=== PATIENT | female | born 1980 | race African-American/Black ===

== ENCOUNTER 2018-01-05 08:33 | Emergency (ER) | payer OTHER ==
[~2018-01-05] VITALS: Ht 165.1 cm; Wt 81.6 kg
--- NOTE | 2018-01-05 09:26 | ED UPPER/LOWER EXTREMITY COMPL ---
History of Present Illness General Chief Complaint: Hand or Wrist Injury Stated Complaint: HAND INJURY S/P ACCIDENT AT WORK Source: patient Exam Limitations: no limitations Vital Signs & Intake/Output Vital Signs & Intake/Output Vital Signs Date Time Temp Pulse Resp B/P B/P Pulse O2 O2 Flow FiO2 Mean Ox Delivery Rate 01/05 0838 98.6 87 16 146/89 99 Room Air Allergies Coded Allergies: No Known Allergies (01/05/18) Triage Note: PT TO ED FOR R WRIST PAIN S/P ATTEMPTING TO MOVE A PATIENT LAST NIGHT AT WORK, GOOD RELIEF WITH TYLENOL, PAIN ROM, SWELLING NOTED. Triage Nurses Notes Reviewed? 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 States that movement and palpation makes worse. Patient is right arm dominant. (Lev Sandoval) Past History Travel History Traveled to [place] past 21 day No Medical History Any Pertinent Medical History? none Neurological: NONE EENT: NONE Cardiovascular: NONE Respiratory: NONE Gastrointestinal: NONE Hepatic: NONE Renal: NONE Musculoskeletal: NONE Psychiatric: NONE Endocrine: NONE Blood Disorders: NONE Cancer(s): NONE Surgical History Surgical History: non-contributory Psychosocial History What is your primary language Welsh Tobacco Use: Never used ETOH Use: denies use Illicit Drug Use: denies illicit drug use Family History Hx Contributory? No (Lev Sandoval) Review of Systems Review of Systems Constitutional: Reports: no symptoms. EENTM: Reports: no symptoms. Respiratory: Reports: no symptoms. Cardiovascular: Reports: no symptoms. Gastrointestinal/Abdominal: Reports: no symptoms. Genitourinary: Reports: no symptoms. Musculoskeletal: Reports: see HPI, joint pain, joint swelling. Skin: Reports: no symptoms. Neurological/Psychological: Reports: no symptoms. Hematologic/Endocrine: Reports: no symptoms. Immunological: Reports: no symptoms. All Other Systems: Reviewed and Negative (Lev Sandoval) Physical Exam Physical Exam General Appearance: no apparent distress Head: atraumatic Eyes: Bilateral: normal appearance. Ears, Nose, Throat: hearing grossly normal Neck: normal inspection Cardiovascular/Respiratory: no respiratory distress Peripheral Pulses: 2+ radial (R) Shoulder Right: normal range of motion, normal inspection Elbow Right: normal range of motion, normal inspection Neurologic/Tendon: normal sensation, normal motor functions, normal tendon functions, responds to pain, no evidence tendon injury, no pulse deficit Skin: intact, normal color, warm/dry Comments: Right wrist- GENERALIZED SWELLING OF WRIST AND POINT TENDERNESS NO SCAPHOID TENDERNESS DECREASED AROM (Lev Sandoval) Progress Differential Diagnosis: arterial insufficiency, compartment syndrome, contusion, dislocation, DVT, fracture, gout, septic arthritis, sprain, tendon injury Plan of Care: Orders Procedure Date/time Status Durable Medical Equipment 01/05 1040 Active X-rays were unremarkable for osseous injury wrist splint was applied pre-and post-neurovascular was intact Diagnostic Imaging: Viewed by Me: Radiology Read. Radiology Impression: no fracture, no dislocation Comments: PATIENT: BENJAMIN ISBELL PRESENT AGE: 37 PATIENT ACCOUNT NO: [id number] : 78 LOCATION: [facility] ORDERING PHYSICIAN: Lev PECK SERVICE DATE: 01/05/18 EXAM TYPE: RAD - XRY-WRIST COMPLETE-RIGHT EXAMINATION: XR WRIST, RIGHT CLINICAL INFORMATION: Right wrist pain COMPARISON: None TECHNIQUE: PA, lateral, oblique, and scaphoid views of the right wrist. FINDINGS: The bones and soft tissues are normal. No fracture. Alignment is anatomic with normal joint spaces. No erosions or abnormal soft tissue calcifications. IMPRESSION: Normal right wrist. DICTATED BY: Jen Gomez MD DATE/TIME DICTATED:01/05/181027 MANAGER SERVICE DESK:EMILIANO (Lev Sandoval) Departure Departure Disposition: HOME OR SELF CARE Condition: Stable Clinical Impression Primary Impression: Sprain of wrist, right Referrals: Patient Has No Primary Care Dr (PCP/Family) Tavon Park MD Additional Instructions: As discussed begin icing the area directly 20 minutes every 2 hours, begin over- the-counter ibuprofen for pain and inflammation, begin using a wrist splint until YOU can move YOUR wrist without pain, if no better in 5 days follow-up with orthopedic Dr. Park if symptoms worsen return to emergency room Departure Forms: Customer Survey General Discharge Information (Lev Sandoval) PA/CHILD CENTER ASSISTANT Co-Sign Statement Statement: ED Attending supervision documentation- [] I saw and evaluated the patient. I have also reviewed all the pertinent lab results and diagnostic results. I agree with the findings and the plan of care as documented in the PA's/CHILD CENTER ASSISTANT's documentation. [x] I have reviewed the ED Record and agree with the PA's/CHILD CENTER ASSISTANT's documentation. [] Additions or exceptions (if any) to the PAs/CHILD CENTER ASSISTANT's note and plan are summarized below: [] (Dale Early DO
--- NOTE | 2018-01-05 10:36 | RADIOLOGY REPORT ---
EXAMINATION: XR WRIST, RIGHT CLINICAL INFORMATION: Right wrist pain COMPARISON: None TECHNIQUE: PA, lateral, oblique, and scaphoid views of the right wrist. FINDINGS: The bones and soft tissues are normal. No fracture. Alignment is anatomic with normal joint spaces. No erosions or abnormal soft tissue calcifications. IMPRESSION: Normal right wrist.
== END 2018-01-05 11:01 ==
LOC: ERH 08:33
DX: S63.501A Unspecified sprain of right wrist, initial encounter (principal); X58.XXXA Exposure to other specified factors, initial encounter; Y92.9 Unspecified place or not applicable; Y93.9 Activity, unspecified
CPT/HCPCS: 73110-RT

== ENCOUNTER 2018-07-29 17:53 | Emergency (ER) | payer OTHER ==
[2018-07-29 18:01] VITALS: BP 145/84
[2018-07-29] MEDS ORDERED: BUTALB-ACETAMI1 EACH PO (18:04)
--- NOTE | 2018-07-29 18:04 | ED HEAD/FACIAL INJ COMPLAINT ---
History of Present Illness General Chief Complaint: Headache Stated Complaint: FELL AT WORK x1 WEEK AGO, [place] Source: patient Exam Limitations: no limitations Vital Signs & Intake/Output Vital Signs & Intake/Output Vital Signs Date Time Temp Pulse Resp B/P B/P Pulse O2 O2 Flow FiO2 Mean Ox Delivery Rate 07/29 1801 97.0 83 22 145/84 98 Allergies Coded Allergies: No Known Allergies (01/05/18) Reconcile Medications Butalb/Acetaminophen/Caffeine ([employer]-Dydyxqcd-Iovb 50-325-40) 50 MG-325 MG-40 MG TABLET 1-2 TAB PO DAILY headache Triage Note: PER PT FELL AT WORK 1 WEEK AGO HIT HEAD NO LOC WAS NOT SEEN AT THAT TIME CO [place] NO BLURRY VISION NO NAUSEA Triage Nurses Notes Reviewed? yes Onset: Abrupt Severity: moderate, severe : No Patient currently breastfeeds: No HPI: 38-year-old female comes into the emergency room for further evaluation of headache. Patient reports that she fell one week ago at work. She went to sit in her chair and fell backwards and hit her head on the ground. No LOC. No vomiting. She reports that she's been having persistent headaches. Denies any vision loss. Denies any vomiting. She comes in to be further evaluated. Denies any neck pain. She complains of some mild right lower abdominal pain. Denies any other associated symptoms Past History Travel History Traveled to [place] past 21 day No Medical History Any Pertinent Medical History? 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 No Review of Systems Review of Systems Constitutional: Reports: no symptoms. EENTM: Reports: no symptoms. Respiratory: Reports: no symptoms. Cardiovascular: Reports: no symptoms. GI: Reports: no symptoms. Genitourinary: Reports: no symptoms. Musculoskeletal: Reports: no symptoms. Skin: Reports: no symptoms. Neurological/Psychological: Reports: see HPI. Hematologic/Endocrine: Reports: no symptoms. Immunologic/Allergic: Reports: no symptoms. All Other Systems: Reviewed and Negative Physical Exam Physical Exam General Appearance: well developed/nourished, mild distress Head: atraumatic, normal appearance Eyes: Bilateral: normal appearance, EOMI. Ears, Nose, Throat: normal ENT inspection, hearing grossly normal Neck: normal inspection Respiratory: no respiratory distress Cardiovascular: regular rate/rhythm Back: normal inspection, no vertebral tenderness, RIGHT LOWER BACK TENDERNESS Extremities: normal inspection, normal range of motion, no edema Psychiatric: awake, alert, oriented x 3 Cranial Nerves: normal hearing, normal speech, PERRL Coordination/Gait: normal finger to nose Motor/Sensory: no motor/sensory deficits Skin: intact, normal color, warm/dry Progress Differential Diagnosis: corneal abrasion, c-spine injury, facial fracture, globe injury, ICH, CONCUSSION Plan of Care: 07/29/2018 6:41:19 PM Patient clinically looks well. Accident happened 1 week ago. Symptoms are most consistent with concussion. She can follow up with PCP. Do not feel CT scan is necessary at this time. Departure Departure Disposition: HOME OR SELF CARE Condition: Stable Clinical Impression Primary Impression: Concussion Referrals: Patient Has No Primary Care Dr (PCP/Family) Additional Instructions: Follow-up with occupational medicine. Take Fioricet for headache. Return if any other concerns. Please go over all results of today's visit with your primary care doctor. Contact your primary care doctor to let them know you were here in the emergency room. There may be nonspecific findings which may not be related to your visit today here in the emergency room but may require further evaluation and chronic monitoring by your primary care doctor. If you had a laceration today the chance of foreign body always remains. You should follow-up with your primary care doctor for recheck in 3-5 days for a wound check. If you had an x-ray done there is a chance that a fracture could have been missed on initial read and you should follow-up with your primary care doctor for repeat x-rays if symptoms persist. If your blood pressure was elevated here in the emergency room please have rechecked by [facility] primary care doctor within the next 48. If you were prescribed a narcotic here in the emergency room or any type of controlled substances you're not allowed to drive while taking this medication or operate any type of heavy machinery. Narcotics can make you feel lightheaded dizziness nausea and can cause constipation. You may need to cigar packer and picker a stool softener. Thank you for choosing [facility] emergency room. Please return to the emergency room immediately if you have any other concerns worsening of symptoms. Departure Forms: General Discharge Information Industrial Accident Report Prescriptions: Current Visit Scripts Butalb/Acetaminophen/Caffeine (Largfb-Qkjbmxss-Ufuv 50-325-40) 1-2 TAB PO DAILY #30 TAB
== END 2018-07-29 18:20 ==
LOC: ERH 17:53
DX: S06.0X0A Concussion without loss of consciousness, initial encounter (principal); W07.XXXA Fall from chair, initial encounter; Y93.89 Activity, other specified